=== PATIENT | female | born 2000 | race Caucasian/White ===

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

== ENCOUNTER 2020-10-03 09:18 | Emergency (ER) | payer OTHER ==
[~2020-10-03] VITALS: Ht 185.4 cm; Wt 147.4 kg
[~2020-10-03 09:18] MED LIST changes: +NAPR550 PO
[2020-10-03] MEDS ORDERED: ONDA4ODT MM (10:08)
== END 2020-10-03 10:08 | disposition home or self-care (01) ==
LOC: ER 09:18
DX: U07.1 COVID-19 (principal); Z79.899 Other long term (current) drug therapy
CPT/HCPCS: 99283

== ENCOUNTER → 2022-09-27 | Outpatient (CLI) | payer OTHER, BC ==
[~2022-09-27] MED LIST changes: +ONDA4ODT MM
== END | disposition home or self-care (01) ==
LOC: LAB SHORT 09:52 → LAB 09:52
DX: E28.2 Polycystic ovarian syndrome (principal)
CPT/HCPCS: 83525

== ENCOUNTER → 2023-01-27 | Outpatient (CLI) | payer BC ==
[2023-02-06 01:32] LABS: HPV GENOTYPE 16 Not Detected; HPV GENOTYPE 18 Not Detected; HPV HIGH RISK Not Detected; HPV SOURCE Cervical
== END ==
LOC: LAB SHORT 10:30 → LAB 10:30
PROVIDERS: Registered Nurse Community Health
DX: Z01.419 Encounter for gynecological examination (general) (routine) without abnormal findings (principal); N89.8 Other specified noninflammatory disorders of vagina
CPT/HCPCS: 87070; 87205

== ENCOUNTER → 2025-01-27 | Outpatient (CLI) | payer BC ==
[2025-01-27 16:32] LABS: Ferritin, Serum 118.0 ng/mL (8-252); Total Iron Binding Capacity 392.0 ug/dL (250-450)
[2025-01-27 16:50] LABS: Bacterial Vaginosis PCR Negative (NEGATIVE); Candida Group, PCR NOT DETECTED (NOT DETECT); Candida glabrata-krusei, PCR NOT DETECTED (NOT DETECT)
[2025-01-27 17:32] LABS: Chlamydia Trachomatis Vaginal NOT DETECTED (NOT DETECT); Neisseria Gonorrhoea Vaginal NOT DETECTED (NOT DETECT)
== END ==
LOC: LAB 13:32 → LAB SHORT 13:32
DX: N71.9 Inflammatory disease of uterus, unspecified (principal); R53.83 Other fatigue
CPT/HCPCS: 81515; 82306; 82728; 83540; 83550; 86592; 87491; 87591